=== PATIENT | male | born 2005 | race Two or more races ===

== ENCOUNTER 2023-04-29 13:33 | Emergency (ER) | payer MEDICAID ==
[~2023-04-29] VITALS: Ht 170.2 cm; Wt 84.6 kg
[2023-04-29 16:40] VITALS: BP 117/54; PULSE 74; RESP 20; TEMP 98.2; O2SAT 96
== END 2023-04-29 17:12 | disposition home or self-care (01) ==
LOC: ER 13:33
DX: S91.201A Unspecified open wound of right great toe with damage to nail, initial encounter (principal); X50.1XXA Overexertion from prolonged static or awkward postures, initial encounter; Y93.72 Activity, wrestling; Y92.89 Other specified places as the place of occurrence of the external cause; Y99.8 Other external cause status
CPT/HCPCS: 73630